=== PATIENT | male | born 1990 | race Caucasian/White ===

== ENCOUNTER 2017-07-24 14:10 | Emergency (ER) | payer SELFPAY ==
[~2017-07-24] VITALS: Ht 160 cm; Wt 54.4 kg
[2017-07-24 14:18] VITALS: Ht 160 cm; Wt 54.4 kg
[2017-07-24 15:39] VITALS: BP 120/72
== END 2017-07-24 15:40 | disposition home or self-care (01) ==
LOC: ED 14:10
DX: R09.1 Pleurisy (principal); J06.9 Acute upper respiratory infection, unspecified; F17.210 Nicotine dependence, cigarettes, uncomplicated
CPT/HCPCS: 99406